=== PATIENT | male | born 1980 | race Hispanic/Latino ===

== ENCOUNTER 2017-10-18 15:07 | Observation (INO) | payer SELFPAY ==
[2017-10-18 15:53] LABS: #Basophils 0.1 thou/uL (0.0-0.2); #Lymphocytes 3.2 thou/uL (1.20-3.40); #Monocytes 0.6 thou/uL (0.11-0.59); #Neutrophils 3.2 thou/uL (1.40-6.50); %Basophils 1.3 % (0.0-1.0); %Eosinophils 0.6 % (0.0-10.0); %Lymphocytes 44.9 % (21.0-51.0); %Monocytes 8.7 % (0.0-10.0); %Neutrophils 44.5 % (42.0-75.0); Mean Corpuscular HGB CONC 33.5 g/dL (32.0-36.0); Mean Corpuscular Volume 95.4 fL (78.0-98.0); Mean Platelet Volume 7.6 fL (7.4-10.4); Platelet Count 366 thou/uL (130-400); RBC Distribution Width 11.7 % (11.5-14.5); Red Blood Cell (RBC) Count 5.01 mill/uL (4.70-6.10); White Blood Cell (WBC) Count 7.2 thou/uL (4.8-10.8)
--- NOTE | 2017-10-18 16:32 | CT ---
HEAD CT WITHOUT CONTRAST: History: Dizziness. Pain. Comparison: None. FINDINGS: No parenchymal hemorrhage. No extraaxial hematoma. No midline shift. Basilar cisterns are patent. Bra in volume is age appropriate. Cortical [place] white matter differentiation preserved. Ventricles and sulci are patent and symmetric. There is opacification of the right mastoid air cells and right middle ear is adequately aerated. Ivonne quate aeration of the sinuses. Calvarium is intact. IMPRESSION: Right middle ear and mastoid air cell opacification. Correlate clinically for otomastoiditis. POS: [facility]
[2017-10-18 16:44] LABS: ALT (SGPT) 19 U/L (8-55); AST (SGOT) 33 U/L (5-34); Albumin 4.5 g/dL (3.5-5.0); Alkaline Phosphatase 73 U/L (40-150); Anion Gap 16 mmol/L (10-20); BUN (Urea Nitrogen) 9 mg/dL (8.9-20.6); Bilirubin, Total 0.3 mg/dL (0.2-1.2); CK (CPK) 282 U/L (30-200); Calc. Creatinine Clearance 0 mL/min (70-130); Calcium 9.5 mg/dL (7.8-10.44); Carbon Dioxide 27 mmol/L (22-29); Chloride 104 mmol/L (98-107); Estimated GFR-MDRD Greater than 90; Globulin 3.7 g/dL (2.4-3.5); Glucose 103 mg/dL (70-105); Potassium 3.8 mmol/L (3.5-5.1); Protein, Total 8.2 g/dL (6.0-8.3); Sodium 143 mmol/L (136-145)
[2017-10-18 16:48] LABS: CKMB 1.8 ng/mL (0-6.6); Troponin I Less than 0.010 ng/mL (< 0.028)
[2017-10-18] MEDS ORDERED: Guaifenesin DM 100-10/5 ML UDCUP PO PRN (18:15)
[2017-10-18] MEDS ORDERED: Ondansetron HCl/PF 4 MG/2 ML Vial IVP PRN (18:15)
[2017-10-18] MEDS ORDERED: Acetaminophen 325 MG TAB PO PRN (18:15)
[2017-10-18 19:07] VITALS: BMI 46.5
[2017-10-18 19:50] LABS: Troponin I Less than 0.010 ng/mL (< 0.028)
[2017-10-18] MEDS ORDERED: Multivitamins, Adult 10 ML, Folic Acid 1 MG, Thiamine HCl 100 MG in Dextrose 5 %-0.45 %... IV SCH (20:00)
[2017-10-18 20:21] LABS: Folate (Folic Acid) 3.2 ng/mL (7.0-31.4)
[2017-10-18] MEDS ORDERED: Atorvastatin Calcium 40 MG TAB PO SCH (21:00)
[2017-10-18] MEDS: Amoxicillin/Potassium Clav 875 MG TAB PO SCH (22:26)
[2017-10-18] MEDS: Famotidine 20 MG TAB PO SCH (22:27)
[2017-10-18] MEDS: Lisinopril 5 MG TAB PO SCH (22:27)
[2017-10-18] MEDS: Docusate 100 MG CAP PO SCH (22:27)
[2017-10-18] MEDS: Metoprolol Tartrate 25 MG TAB PO SCH (22:29)
[2017-10-18 22:38] LABS: Troponin I Less than 0.010 ng/mL (< 0.028)
--- NOTE | 2017-10-19 00:59 | HP ---
REASON FOR ADMISSION: Left-sided weakness, numbness, chest pain. HISTORY OF PRESENT ILLNESS: The patient gives history of left-sided weakness including tingling and numbness. This started from Sunday. He also developed chest pain on taking deep breaths from this morning. Has no complaint of palpitations or PND. Has mild shortness of breath. The left-sided weakness has not changed from Sunday. Finally, as this was not getting better, the patient came to emergency room. No complaints of cough or expectoration. No history of fever. No prior cardiac workup or history of stroke. PAST MEDICAL/SURGICAL HISTORY: Left foot surgery for fractures done 7 years ago. CURRENT MEDICATIONS: None. ALLERGIES: No known drug allergies. PERSONAL HISTORY: Drinks 2 beers a day. Does not abuse drugs. Does not smoke. Works in construction. FAMILY HISTORY: Father of stroke and was also alcoholic at the age of 50 years. Mother has history of hypertension and is living. CODE STATUS: FULL. REVIEW OF SYSTEMS: The following complete review of systems was negative, unless otherwise mentioned in the HPI or below: Constitutional: Weight loss or gain, ability to conduct usual activities. Skin: Rash, itching. Eyes: Double vision, pain. ENT/Mouth: Nose bleeding, neck stiffness, pain, tenderness. Cardiovascular: Palpitations, dyspnea on exertion, orthopnea. Respiratory: Shortness of breath, wheezing, cough, hemoptysis, fever or night sweats. Gastrointestinal: Poor appetite, abdominal pain, heartburn, nausea, vomiting, constipation, or diarrhea. Genitourinary: Urgency, frequency, dysuria, nocturia. Musculoskeletal: Pain, swelling. Neurologic/Psychiatric: Anxiety, depression. Allergy/Immunologic: Skin rash, bleeding tendency. PHYSICAL EXAMINATION: GENERAL: The patient is a 37-year-old male who is currently not in any acute distress. VITAL SIGNS: Blood pressure 147/100, pulse 105 per minute, respiratory rate 12 per minute, temperature 98.4 degrees Fahrenheit, saturating 94% on room air. NECK: Supple, no elevated JVD. HEENT: Extraocular muscles intact. Pupils reacting to light. Oral cavity mucous membranes are moist. No exudates or congestion. CARDIOVASCULAR: S1, S2 heard. Regular rhythm. RESPIRATORY: Air entry 1+ bilateral. Scattered rhonchi plus no rales or wheezes. ABDOMEN: Soft. There is mild tenderness in the right upper quadrant. No rigidity or guarding. Bowel sounds are heard. EXTREMITIES: No peripheral edema or calf tenderness. VASCULAR SYSTEM: Peripheral pulses 1+ bilateral. No ischemic ulcerations or gangrene. CENTRAL NERVOUS SYSTEM: Cranial nerves are grossly intact. Left upper and lower extremity strength is 4/5, right is 5/5, reflexes are 2+ bilateral. Babinski is downgoing. Gait was not tested. PSYCHIATRIC: The patient's mood is euthymic. No hallucinations or delusions. LABORATORY AND X-RAY FINDINGS: White count of 7, H&H 16 and 47, MCV is 95 with platelet count of 366 with 44% neutrophils. Electrolytes are stable. BUN 9, creatinine 0.8, glucose 103. Liver enzymes within normal limits. Ammonia levels of 37. CK level is 282, albumin is 4.5. One set of cardiac enzymes are negative. Plasma alcohol levels of 320. CT brain done shows opacification of right mastoid air cells for possible mastoiditis. No acute infarct or hemorrhage is seen. EKG done shows sinus tachycardia at 101 beats per minute. There are signs of LVH and Q-waves in lead 3 and aVF. CLINICAL IMPRESSION AND PLAN: The patient will be under observation on stroke unit for possible transient ischemic attack with left-sided weakness. Will follow transient ischemic attack evidence based protocol. The patient also has uncontrolled hypertension with signs of LVH on the EKG as well. He will be on lisinopril and metoprolol for now, full dose aspirin and Lipitor. Patient states he drinks only 2 beers, but his alcohol levels are more than 320 mg per deciliter. The patient is morbidly obese and weighing nearly 100 kilos. We will obtain MRI without contrast. Echo with 2D Doppler and two more sets of cardiac enzymes in view of EKG changes seen likely old with Q-waves in lead 3, aVF. He will be on thiamine, B12 and folic acid as well. We will obtain a urine drug screen as well. MTDD
[2017-10-19 05:29] LABS: #Basophils 0.1 thou/uL (0.0-0.2); #Eosinphils 0.1 thou/uL (0.0-0.7); #Monocytes 0.9 thou/uL (0.11-0.59); #Neutrophils 4.4 thou/uL (1.40-6.50); %Basophils 0.7 % (0.0-1.0); %Eosinophils 0.9 % (0.0-10.0); %Lymphocytes 35.5 % (21.0-51.0); %Monocytes 10.2 % (0.0-10.0); %Neutrophils 52.8 % (42.0-75.0); Hemoglobin 15.4 g/dL (14.0-18.0); Mean Corpuscular HGB CONC 33.8 g/dL (32.0-36.0); Mean Corpuscular Hemoglobin 32.7 pg (27.0-31.0); Mean Corpuscular Volume 96.8 fL (78.0-98.0); Mean Platelet Volume 7.4 fL (7.4-10.4); Platelet Count 339 thou/uL (130-400); RBC Distribution Width 11.6 % (11.5-14.5); White Blood Cell (WBC) Count 8.4 thou/uL (4.8-10.8)
[2017-10-19 05:42] LABS: Anion Gap 12 mmol/L (10-20); BUN (Urea Nitrogen) 11 mg/dL (8.9-20.6); Calc. Creatinine Clearance 223 mL/min (70-130); Calcium 8.7 mg/dL (7.8-10.44); Carbon Dioxide 28 mmol/L (22-29); Cardiac Risk 2.9 (Less than 4.5); Chloride 102 mmol/L (98-107); Cholesterol 179 mg/dl (< 200 Desired); Estimated GFR-MDRD Greater than 90; Glucose 108 mg/dL (70-105); HDL Cholesterol 61 mg/dL (>60 Neg Risk); LDL Cholesterol, Calculated 62 mg/dL; Potassium 3.7 mmol/L (3.5-5.1); Sodium 138 mmol/L (136-145); Triglycerides 282 mg/dL (Less than 150)
[2017-10-19 08:07] VITALS: TEMP 97.4
[2017-10-19] MEDS: Lisinopril 5 MG TAB PO SCH (08:23)
[2017-10-19] MEDS: Amoxicillin/Potassium Clav 875 MG TAB PO SCH (08:23)
[2017-10-19] MEDS: Famotidine 20 MG TAB PO SCH (08:24)
[2017-10-19] MEDS: Metoprolol Tartrate 25 MG TAB PO SCH (08:24)
[2017-10-19] MEDS: Docusate 100 MG CAP PO SCH (08:24)
[2017-10-19] MEDS ORDERED: Aspirin 325 mg Enteric Coated Tablet PO SCH (09:00)
[2017-10-19] MEDS ORDERED: Cyanocobalamin (Vitamin B-12) 1,000 MCG TAB PO SCH (09:00)
[2017-10-19] MEDS ORDERED: Enoxaparin Sodium 40 MG/0.4 ML SYRINGE SC SCH (09:00)
[2017-10-19] MEDS ORDERED: Folic Acid 1 MG TAB PO SCH (09:00)
--- NOTE | 2017-10-19 09:48 | PDOC.PN ---
- Subjective Encounter Start Date: 10/19/17 Encounter Start Time: 08:30 Subjective: left sided weakness is getting better, tingling/numbness is better as well -: no chest pain or sob or palp -: is amb in room - Objective Resuscitation Status: Resuscitation Status FULL:Full Resuscitation MAR Reviewed: Yes Vital Signs & Weight: Vital Signs (12 hours) Temp Pulse Resp BP BP BP Pulse Ox 10/19/17 08:23 80 10/19/17 08:07 97.4 F L 80 20 176/74 H 95 10/19/17 04:00 98.3 F 77 20 175/89 H 93 L 10/19/17 00:05 98.6 F 88 20 152/90 H 99 10/18/17 22:27 96 163/94 H 10/18/17 22:20 97.8 F 89 20 163/94 H 94 L 10/18/17 22:00 99 F 92 24 H Weight Weight 280 lb I&O: 10/18/17 10/19/17 10/20/17 06:59 06:59 06:59 Intake Total 480 Balance 480 Result Diagrams: 10/19/17 05:15 10/19/17 05:15 Phys Exam - Physical Examination HEENT: PERRLA, moist MMs Neck: no JVD, supple Respiratory: no rales, no rhonchi Cardiovascular: RRR, no significant murmur Gastrointestinal: soft, non-tender, positive bowel sounds Musculoskeletal: no edema, pulses present Neurological: non-focal, moves all 4 limbs Psychiatric: normal affect, A&O x 3 Dx/Plan (1) TIA (transient ischemic attack) Code(s): G45.9 - TRANSIENT CEREBRAL ISCHEMIC ATTACK, UNSPECIFIED Status: Acute (2) HTN (hypertension) Code(s): I10 - ESSENTIAL (PRIMARY) HYPERTENSION Status: Acute Comment: uncontrolled (3) Dyslipidemia Code(s): E78.5 - HYPERLIPIDEMIA, UNSPECIFIED Status: Acute (4) Alcohol abuse Code(s): F10.10 - ALCOHOL ABUSE, UNCOMPLICATED Status: Acute (5) Morbid obesity Code(s): E66.01 - MORBID (SEVERE) OBESITY DUE TO EXCESS CALORIES Status: Chronic - Plan folic acid def -: counselled against drinking alcohol and reducing weight and healthy eating -: continue asp, lipitor, lopressor and lisinopril -: augmentin for mastoiditis x 8 days -: may dc home if cleared by PT/OT and neuro * . Review of Systems - Medications/Allergies Allergies/Adverse Reactions: Allergies Allergy/AdvReac Type Severity Reaction Status Date / Time No Known Drug Allergies Allergy Verified 10/19/17 07:38 Medications: Current Medications Acetaminophen (Tylenol) 650 mg PO Q4H PRN PRN Reason: Headache/Fever or Pain Amoxicillin/Clavulanate Potassium (Augmentin) 875 mg PO Q12HR [facility] Last Admin: 10/19/17 08:23 Dose: 875 mg Aspirin (Ecotrin) 325 mg PO DAILY [facility] Last Admin: 10/19/17 08:24 Dose: 325 mg Atorvastatin Calcium (Lipitor) 40 mg PO HS [facility] Last Admin: 10/18/17 22:27 Dose: 40 mg Cyanocobalamin (Vitamin B-12) 1,000 mcg PO DAILY [facility] Last Admin: 10/19/17 08:23 Dose: 1,000 mcg Docusate Sodium (Colace) 100 mg PO BID [facility] Last Admin: 10/19/17 08:24 Dose: 100 mg Enoxaparin Sodium (Lovenox) 40 mg SC 0900 [facility] Last Admin: 10/19/17 08:24 Dose: 40 mg Famotidine (Pepcid) 20 mg PO BID [facility] Last Admin: 10/19/17 08:24 Dose: 20 mg Folic Acid (Folvite) 1 mg PO DAILY [facility] Last Admin: 10/19/17 08:24 Dose: 1 mg Guaifenesin/Dextromethorphan (Robitussin Dm) 15 ml PO Q4H PRN PRN Reason: Cough Multivitamins 10 ml/ Folic Acid 1 mg/ Thiamine HCl 100 mg / Dextrose/Sodium Chloride 1,011.2 mls @ 70 mls/hr IV Q24HR [facility] Last Admin: 10/18/17 22:26 Dose: 1,011.2 mls Lisinopril (Zestril) 5 mg PO BID [facility] Last Admin: 10/19/17 08:23 Dose: 5 mg Metoprolol Tartrate (Lopressor) 25 mg PO BID [facility] Last Admin: 10/19/17 08:24 Dose: 25 mg Ondansetron HCl (Zofran) 4 mg IVP Q6H PRN PRN Reason: Nausea/Vomiting Last Admin: 10/19/17 05:49 Dose: 4 mg Sodium Chloride (Flush - Normal Saline) 10 ml IVF PRN PRN PRN Reason: Saline Flush Thiamine HCl (Thiamine) 100 mg PO DAILY [facility] Last Admin: 10/19/17 08:23 Dose: 100 mg
--- NOTE | 2017-10-19 10:25 | MRI ---
MRI BRAIN WITHOUT CONTRAST: HISTORY: TIA. COMPARISON: CT brain from the prior day. FINDINGS: On the diffusion-weighted imaging sequence, there are no abnormal areas of diffusion restriction to s uggest an acute infarction. This is confirmed with the ADC maps. On the susceptibility imaging sequence, there are no abnormal areas of hemorrhage. No significant microvascular ischemic changes. The [place] flow voids are maintained. Ther e is fluid within the right mastoid air cells. The corpus callosum is normal. Marrow signal of the clivus is normal. The cerebellar tonsils termin ate at the level of the foramen magnum. IMPRESSION: 1. Right mastoid opacification. 2. No acute intracranial abnormality. POS: [facility]
[2017-10-19 12:03] VITALS: BP 189/90
[2017-10-19 12:28] LABS: Amphetamine Not Detected (NotDetected); Barbiturates Screen Not Detected (NotDetected); Benzodiazepine Screen Not Detected (NotDetected); Cocaine Metabolite Screen Not Detected (NotDetected); Medtox Control Line Valid? VALID (VALID); Medtox Reader # READER 4; Methadone Not Detected (NotDetected); Methamphetamine Not Detected (NotDetected); Opiate Screen Not Detected (NotDetected); Oxycodone Screen Not Detected (NotDetected); Phencyclidine (PCP) Not Detected (NotDetected); THC/Cannabinoid Screen Not Detected (NotDetected); Tricyclic Screen Not Detected (NotDetected)
--- NOTE | 2017-10-19 19:36 | DIS ---
DATE OF ADMISSION: 10/18/2017 DATE OF DISCHARGE: 10/19/2017 DISCHARGE DISPOSITION: To home. PRIMARY DISCHARGE DIAGNOSIS: Transient ischemic attack with left-sided weakness and numbness resolved, chest pain resolved; dyslipidemia, alcohol abuse , morbid obesity, uncontrolled hypertension. PROCEDURES DONE DURING HOSPITALIZATION: The patient has had initial CT done without contrast for the brain which showed right mastoid opacification with no acute intracranial abnormality. MRI brain done showed findings similar to a CAT scan with no acute infarct. H&H 15 and 45, platelet count 339, MCV was 96. Troponin x3 were negative. BNP 10. Total cholesterol 179, triglycerides 282 , LDL 62. Vitamin B12 434, folic acid 3.20. Urine drug screen is negative. Plasma alcohol was 320 mg per deciliter. DISCHARGE MEDICATIONS: Aspirin 81 mg p.o. daily, Lipitor 40 mg p.o. daily, folic acid 1 mg p.o. daily, Augmentin 875 mg p.o. twice daily for right mastoiditis, lisinopril 10 mg p.o. daily, Lopressor 25 mg twice daily, omeprazole 20 mg daily, thiamine 100 mg daily. ALLERGIES: No known drug allergies. DISCHARGE PLAN: Patient to follow up with primary care physician in 1 week. BRIEF COURSE DURING HOSPITALIZATION: Patient initially came to ER with complaints of left-sided tingling, numbness and weakness along with chest pain. He was placed under observation for possible TIA and to rule out ACS. Three sets of cardiac enzymes are negative. The patient had uncontrolled hypertension which is new onset. He is also morbidly obese with BMI of 46 and alcohol abuse as well. He has had complete neurologic workup done including CT and MRI brain which have not revealed any acute infarct. Echo with 2D Doppler is currently pending. His medications have been optimized. The patient had low folic acid levels which has been supplemented now. He has been placed on Lopressor and lisinopril for blood pressure. Augmentin for another 8 days for right mastoiditis for which he needs to see outpatient ENT physician in 4 weeks. He has otherwise remained neurologically and hemodynamically stable. He is ambulating and will be shortly discharged home. Prior to discharge, the patient was counseled with regards to alcohol use Cessation and compliance with medication. He was also counseled with regards to losing weight and eating healthy along with exercise. Please see a [id number] for the day of discharge. [facility]
--- NOTE | 2017-10-20 22:25 | EKG ---
Test Reason : Blood Pressure : / mmHG Vent. Rate : 101 BPM Atrial Rate : 101 BPM P-R Int : 134 ms QRS Dur : 088 ms QT Int : 348 ms P-R-T Axes : 016 002 018 degrees QTc Int : 451 ms Sinus tachycardia Voltage criteria for left ventricular hypertrophy Inferior infarct , age undetermined Abnormal ECG Confirmed by LO PRECIADO DO ([id number]), movie editor MINERVA SMITH ([id number]) on 10/20/2017 10:25:09 PM Referred By: Confirmed By:LO PRECIADO DO
== END 2017-10-19 13:03 | disposition home or self-care (01) ==
LOC: ERS 15:07 → 2SE 17:21
PROVIDERS: ADMIT Internal Medicine; ATTEND Internal Medicine
DX: G45.9 Transient cerebral ischemic attack, unspecified (principal); R53.1 Weakness; R20.2 Paresthesia of skin; R07.9 Chest pain, unspecified; E78.5 Hyperlipidemia, unspecified; I10 Essential (primary) hypertension; F10.10 Alcohol abuse, uncomplicated; E66.01 Morbid (severe) obesity due to excess calories; Z68.42 Body mass index [BMI] 45.0-49.9, adult
CPT/HCPCS: 36415; 70450; 70551; 80048; 80053; 80061; 80306; 80307; 82140; 82550; 82553; 82607; 82746; 83880; 84484; 85025; 93005; 93306; 94760; 96365; 96366; 96372; 96375; G0378; G8978-GP-CI; G8979-GP-CI; G8980-GP-CI; G8987-GO-CH; G8988-GO-CH; G8989-GO-CH; J1650; J2405; J3411; J7042